=== PATIENT | female | born 1945 | race Caucasian/White ===

== ENCOUNTER 2017-01-20 17:52 | Emergency (ER) | payer MEDICARE, BC ==
[~2017-01-20] VITALS: Ht 160 cm; Wt 95.0 kg
[2017-01-20] MEDS ORDERED: KEFLEX500 MG PO (18:56)
[2017-01-20] MEDS ORDERED: PYRIDIUM200 MG PO (18:56)
[2017-01-20] MEDS ORDERED: LORTAB 5/3255 MG PO (18:56)
[2017-01-20 19:10] VITALS: BP 131/73
== END 2017-01-20 19:15 | disposition home or self-care (01) ==
LOC: ED 17:52
PROC: 0HDRXZZ Extraction of Toe Nail, External Approach (ICD-10-PCS; principal; 2017-01-20)
DX: S91.202A Unspecified open wound of left great toe with damage to nail, initial encounter (principal); N39.0 Urinary tract infection, site not specified; R30.0 Dysuria

== ENCOUNTER 2017-07-08 20:34 | Inpatient (IN) | payer MEDICARE, BC ==
[~2017-07-08] VITALS: Ht 160 cm; Wt 95.0 kg
[~2017-07-08 20:34] MED LIST: KEFLEX500 MG PO; LORTAB 5/3255 MG PO; PYRIDIUM200 MG PO
--- NOTE | 2017-07-08 20:38 | NUR ---
PT WHEELED STRAIGHT TO ROOM 12 AND TRIAGED.
--- NOTE | 2017-07-08 20:47 | NUR ---
DR TANNER AT BEDSIDE.
--- NOTE | 2017-07-08 21:00 | NUR ---
PT RELATED HER BREATHING FELT BETTER AFTER RESP TX.
--- NOTE | 2017-07-08 21:30 | NUR ---
BREATHING TREATMENT GIVEN. BREATHING TECH. FOR GOOD DEPOSITION TO THE LUNGS.
[2017-07-08 22:00] LABS: HEMATOCRIT 25.8 % (37.0-47.0); HEMOGLOBIN 8.7 g/dl (12.0-16.0); IMMATURE GRANULOCYTES 0.6 % (0.0-1.0); MEAN CELL VOLUME 106.6 fL CALC (80.0-100.0); MEAN CORPUSCULAR HGB CONC 33.7 g/L CALC (32.0-36.0); NEUT# 8.29 thou/uL (2.00-7.15); RED BLOOD COUNT 2.42 mill/uL (4.20-5.60); RED CELL DISTRI WIDTH 21.2 % (11.5-15.5)
[2017-07-08 22:14] LABS: ALBUMIN 4.3 g/dL (3.2-5.0); ALKALINE PHOSPHATASE 73 u/l (38-126); ANION GAP 22 (6-22 (CALC)); BILIRUBIN, TOTAL 0.6 mg/dL (0.0-1.4); BUN 18 mg/dL (8-23); BUN/CREATININE RATIO 19 (12-20 (CALC)); CARBON DIOXIDE 22 mmol/l (22-30); CHLORIDE 100 mmol/l (95-108); CREATININE 0.9 mg/dL (0.5-1.0); GFR > 60 ML/MIN (>=60 (CALC)); GFR FOR AFR.AMER. > 60 ML/MIN (>=60 (CALC)); POTASSIUM 4.3 mmol/l (3.5-5.1); SGOT/AST 71 u/l (9-36); SGPT/ALT 78 u/l (11-66); SODIUM 139 mmol/l (137-146); TOTAL PROTEIN 7.8 g/dL (6.3-8.2)
[2017-07-08 22:26] LABS: MYOGLOBIN 49 ng/mL (0 - 62)
--- NOTE | 2017-07-08 22:54 | NUR ---
PT TO CT.
--- NOTE | 2017-07-08 23:21 | NUR ---
RETURNED FROM CT.
--- NOTE | 2017-07-08 23:29 | NUR ---
PT DENIED SOB AT THIS TIME.
[2017-07-09 00:02] LABS: URINE BILIRUBIN - DIPSTICK NEGATIVE (NEGATIVE); URINE BLOOD DIPSTICK NEGATIVE (NEGATIVE); URINE COLOR YELLOW; URINE GLUCOSE - DIPSTICK NEGATIVE (NEGATIVE); URINE KETONE NEGATIVE (NEGATIVE); URINE LEUK ESTERASE TRACE (NEGATIVE); URINE NITRITE - DIPSTICK NEGATIVE (Negative); URINE PH 6.5 (4.5-8.0); URINE PROTEIN - DIPSTICK NEGATIVE (NEG-TRACE); URINE SPECIFIC GRAVITY <=1.005; URINE UROBILINOGEN - DIPSTICK 0.2 E.U./dL (0.2)
[2017-07-09 00:10] LABS: URINE CLARITY CLEAR
--- NOTE | 2017-07-09 00:15 | NUR ---
MED/SURG CALLED FOR REPORT. WILL RETURN CALL.
--- NOTE | 2017-07-09 00:25 | NUR ---
REPORT GIVEN TO ELAINEYA MED/SURG.
--- NOTE | 2017-07-09 00:35 | NUR ---
PT.ARRIVED TO THE FLOOR ACCOMPANIED BY CARLOS HELMS OF THE ED VIA STRETCHER. PT.APPEARS TO BE IN STABLE CONDITION AT THIS TIME. PT. DENIES ANY PAIN/N/V AT THIS TIME. PT.IS SOB UPON AMBULATION, BUT REPORTS FEELING "MUCH BETTER," SINCE GETTING TO THE HOSPITAL. V/S BEING ASSESSED. LUNG SOUNDS ARE WHEEZY THROUGHOUT, ABD.SOFT/NON-TENDER/HYPO-BOWEL SOUNDS, PT.REPORTS USING STOOL SOFTENERS REGULARLY, BUT REPORTS BM YESTEREDAY/NORMAL. DENIES DIFFICULTY URINATING, LOCX4. PT.REPORTS FEELING "CHILLED" AT THIS TIME. NO APPARENT EDEMA OR SKIN ISSUES. IV FLUIDS RUNNING NS BOLUS UPON ARRIVING TO THE FLOOR. PT ORIENTED TO ROOM,CALL SYSTEM,LIGHTS,BED AND TV AND PROVIDED W/PO WATER AT THIS TIME.
--- NOTE | 2017-07-09 00:35 | NUR ---
PT TO RM 282 ON TELE WITH RN. PT COND STABLE AT THIS TIME.
[2017-07-09 00:40] VITALS: BP 153/66
--- NOTE | 2017-07-09 01:22 | NUR ---
PT.MEDICATED FOR SLEEP ORDERS PROVIDE AND IV FLUID THERAPY ADMINSTERED RATE CHANGE TO 125MLS/HR. PT.INSTRUCTED TO CALL FOR ASSISTANCE AMBULATING DUE TO REPORTS OF WEAKNESS, PT.EXPRESSESS UNDERSTANDING. CALL LIGHT IS AT BEDSIDE, LIGHTS TURNED OUT, PT.REQUESTED DOOR TO BE CLOSE.
[2017-07-09 04:35] VITALS: BP 136/77
--- NOTE | 2017-07-09 05:10 | NUR ---
PT.ASSISTED TO BSC AND OUTPUT 500CC CLEAR YELLOW URINE. PT.ASSISTED BACK TO BED, ROOM COOLED AND BLANKET REMOVED/SHEET LEFT ON FOR COMFORT. PT.DENIES ANY OTHER NEEDS AT THIS TIME. CALL LIGHT AT SIDE.
--- NOTE | 2017-07-09 07:10 | NUR ---
REPORT RECEIVED FROM CARLOS DENG;PT APPEARS TO BE SLEEPING IN SEMI FOWLERS POSITION,WAKES EASILY TO VERBAL STIMULI;INTRODUCED SELF TO PT AND POC DISCUSSED;RESPIRATIONS EVEN AND UNLABORED;TELE MONITOR IN PLACE;ENCOURAGED TO CALL FOR ASSISTANCE IF NEEDED;BED IN THE LOWEST POSITION WITH CALL LIGHT IN REACH;WILL CONTINUE TO MONITOR
[2017-07-09 08:20] VITALS: BP 129/72
--- NOTE | 2017-07-09 08:30 | NUR ---
PT RESTING IN SUPINE POSITION,TEARFUL;PT REPORTS CONFUSION TO POC;PT RE-ASSURED AND POC DISCUSSED,PT VERBALIZES UNDERSTANDING;VS OBTAINED AND ASSESSMENT COMPLETED;CURRENT TEMP 99.3,PRN TYLENOL TO BE ADMINISTERED;PT ENCOURAGED TO REMOVE BLANKETS AND AC LOWERED;RESPIRATIONS EVEN AND UNLABORED,SHALLOW ON 02 @ 2L VIA NC;WHEEZES NOTED;ABDOMEN DISTENDED/SOFT ON PALPATION AND ACTIVE IN ALL 4 QUADRANTS;TELE MONITOR IN PLACE;#20G TO RAC INFUSING NS @ 125ML/HR,SITE APPEARS HEALTHY;SKIN INTACT;PT DENIES ANY OTHER CURRENT NEEDS;ENCOURAGED TO CALL FOR ASSISTANCE IF NEEDED;CALL LIGHT IN REACH;WILL CONTINUE TO MONITOR
--- NOTE | 2017-07-09 09:55 | NUR ---
TEMP RE-CHECK 98.7
--- NOTE | 2017-07-09 10:05 | NUR ---
LUBNA,RESPIRATORY ADMINISTERING BREATHING TREATMENT AT THIS TIME
--- NOTE | 2017-07-09 11:30 | NUR ---
PT RESTING AT BEDSIDE EATING LUNCH;RESPIRATIONS REMAIN EVEN AND UNLABORED ON RA;TELE MONITOR IN PLACE;IV SITE PATENT;PT DENIES ANY PAIN OR DISCOMFORTS;ENCOURAGED TO CALL FOR ASSISTANCE IF NEEDED;CALL LIGHT IN REACH;WILL CONTINUE TO MONITOR
[2017-07-09 14:19] VITALS: BP 127/63
--- NOTE | 2017-07-09 16:40 | NUR ---
PT OOB RESTING IN RECLINER;RESPIRATIONS EVEN AND UNLABORED ON RA,OXYGEN AT BEDSIDE NEEDED;TELE MONITOR IN PLACE;PT VOICES NO COMPLAINTS OR NEEDS;IV SITE PATENT INFUSING TO RAC WITH EASE;CALL LIGHT IN REACH;WILL CONTINUE TO MONITOR
[2017-07-09 19:10] VITALS: BP 127/66
--- NOTE | 2017-07-09 19:39 | NUR ---
REPORT RECEIVED FOR DAY NURSE. PT.IS LOW FOWLERS POSITION WATCHING TV W/LIGHTS LOW. PT.DENIES ANY PAIN OR SOB AT THIS TIME. REPORTS FEELING, "MUCH BETTER." IV FLUIDS ARE RUNNING NS@100, IV SITE APPEARS HEALTHY AT THIS TIME. NO S/S OF DISTRESS. PT.HAS BEEN ENCOURAGED TO CALL IF ANY NEEDS ARISE. CALL LIGHT IS IN HAND.
--- NOTE | 2017-07-09 21:15 | NUR ---
PT.MEDICATED ORDERS PROVIDE. PT.REPORTS HAVING NOT RECEIVED ANY OF HER HOME MEDICATIONS AND EXPRESSED CONCERN AND FRUSTRATION STATING SHE SPOKE WITH DAY NURSE AND THE DOCTOR REGARDING HER HOME MEDICATIONS. WILL FOLLOW-UP WITH PHYSICIAN TO ORDER HOME MEDICATIONS. PT.ASSISTED TO RESTROOM AND ASSISTED BACK TO BED. PT.ENCOURAGED TO CALL IF ANY ASSISTANCE IS NEEDED, CALL LIGHT AT BEDSIDE.
[2017-07-09] MEDS ORDERED: EFFEXOR37.5 MG PO (22:06)
[2017-07-09] MEDS ORDERED: MEMANTINE HCL10 MG (23:04)
--- NOTE | 2017-07-10 00:05 | NUR ---
PT.MEDICATED W/IV ANTIBIOTIC THERAPY, HOME MEDICATIONS ORDERED AND FOR BLOOD SUGAR OF 289. PT.WAS ASLEEP I ENTERED THE ROOM, BUT AWOKE TO MY VOICE. PT.DENIES ANY PAIN OR SOB AT THIS TIME. V/S ARE BEING ASSESSED AT THIS TIME, PT.IS AFEBRILE. NO S/S OF DISTRESS NOTED. CALL LIGHT IS W/IN REACH AND PT.HAS BEEN ENCOURAGED TO CALL FOR ASSISTANCE WHEN NEEDED AND FOR AMBULATION.
[2017-07-10 00:21] VITALS: BP 108/54
[2017-07-10 04:15] VITALS: BP 139/71
--- NOTE | 2017-07-10 04:15 | NUR ---
PT.IS SLEEPING AT THIS TIME. NO S/S OF DISTRESS CALL LIGHT IS AT SIDE.
[2017-07-10 05:28] LABS: HEMATOCRIT 22.9 % (37.0-47.0); HEMOGLOBIN 7.3 g/dl (12.0-16.0); IMMATURE GRANULOCYTES 0.3 % (0.0-1.0); MEAN CELL VOLUME 111.2 fL CALC (80.0-100.0); MEAN CORPUSCULAR HGB 35.4 pG CALC (26.0-32.0); MEAN CORPUSCULAR HGB CONC 31.9 g/L CALC (32.0-36.0); NEUT# 4.72 thou/uL (2.00-7.15); RED BLOOD COUNT 2.06 mill/uL (4.20-5.60); RED CELL DISTRI WIDTH 21.4 % (11.5-15.5)
[2017-07-10 05:40] LABS: ALKALINE PHOSPHATASE 50 u/l (38-126); ANION GAP 15 (6-22 (CALC)); BILIRUBIN, TOTAL 0.4 mg/dL (0.0-1.4); BUN 12 mg/dL (8-23); BUN/CREATININE RATIO 13 (12-20 (CALC)); CARBON DIOXIDE 22 mmol/l (22-30); CHLORIDE 108 mmol/l (95-108); CREATININE 0.9 mg/dL (0.5-1.0); GFR > 60 ML/MIN (>=60 (CALC)); GFR FOR AFR.AMER. > 60 ML/MIN (>=60 (CALC)); MAGNESIUM 1.8 mg/dL (1.6-2.3); SGOT/AST 28 u/l (9-36); SGPT/ALT 52 u/l (11-66); SODIUM 142 mmol/l (137-146)
[2017-07-10 05:41] LABS: POTASSIUM 3.4 mmol/l (3.5-5.1); TOTAL PROTEIN 6.1 g/dL (6.3-8.2)
--- NOTE | 2017-07-10 05:55 | NUR ---
RESPIRATORY IN WITH PT, JUST COMPLETING BREATHING TREATEMENT. PT.MEDICATED W/IV ANTIBIOTIC THERAPY AT THIS TIME. PT.DENIES ANY NEEDS AT THIS TIME,CALL LIGHT W/IN REACH.
--- NOTE | 2017-07-10 07:00 | NUR ---
RECEIVED BEDSIDE REPORT FROM SOWMYA GONZALEZ. RESTING IN SEMI FOWLERS WITH EYES CLOSED, AWAKENS EASILY. RESPS EVEN AND UNLABORED ON ROOM AIR, TELE MONITOR IN PLACE. #22 RAC INFUSING WITHOUT DIFFICULTY, SITE APPEARS HEALTHY. DENIES PAIN OR DISCOMFORT. SAFETY PRECAUTIONS REINFORCED. BED IN LOWEST POSITION WITH WHEELS LOCKED. CALL LIGHT WITHIN REACH. ENCOURAGED PT TO CALL FOR ANY NEEDS.
[2017-07-10 08:30] VITALS: BP 127/50
[2017-07-10 11:22] VITALS: BP 138/71
--- NOTE | 2017-07-10 12:45 | NUR ---
SITTING IN BEDSIDE CHAIR, FAMILY AT BEDSIDE. RESPS EVEN AND UNLABORED ON ROOM AIR, TELE MONITOR IN PLACE. #22 RAC INFUSING WITHOUT DIFFICULTY, SITE APPEARS HEALTHY. DENIES PAIN OR DISCOMFORT. DR MOORE AT BEDSIDE, NEW ORDERS RECEIVED. CALL LIGHT WITHIN REACH. WILL CONTINUE TO MONITOR.
[2017-07-10] MEDS ORDERED: NEXIUM40 M1 PO (14:40)
[2017-07-10] MEDS ORDERED: NAMENDA10 MG PO (14:41)
[2017-07-10] MEDS ORDERED: GLIPIZIDE5 MG PO (14:41)
[2017-07-10] MEDS ORDERED: LOSARTAN/HCT1 TA2 PO (14:41)
[2017-07-10] MEDS ORDERED: VALACYCLOVIR H500 MG PO (14:42)
[2017-07-10] MEDS ORDERED: FUROSEMIDE40 MG PO (14:42)
[2017-07-10] MEDS ORDERED: TRESIBA FL100 UNIT/M SC (14:43)
[2017-07-10] MEDS ORDERED: PEPCID40 MG PO (14:44)
[2017-07-10] MEDS ORDERED: AUGMENTIN875TAB PO (15:17)
[2017-07-10] MEDS ORDERED: PREDNISONE10 MG PO (15:17)
--- NOTE | 2017-07-10 15:31 | NUR ---
IV site discontinued, cath intact. No edema , no redness, voices no discomfort.
[2017-07-10 15:39] VITALS: BP 153/71
--- NOTE | 2017-07-10 15:40 | NUR ---
Discharge instructions given. Patient verbalizes understanding of same. Discharged in stable condition via Wheelchair to Home with spouse. All belongings sent with pt.
== END 2017-07-10 15:40 | disposition home or self-care (01) | DRG 194 ==
LOC: ED 20:34 → ED-I 22:26 → ED 23:54 → MS2 23:55
PROVIDERS: Emergency Medicine; Nurse Practitioner Family; ADMIT Internal Medicine; ATTEND Internal Medicine
DX: J18.9 Pneumonia, unspecified organism (principal); C34.92 Malignant neoplasm of unspecified part of left bronchus or lung; D64.81 Anemia due to antineoplastic chemotherapy; C78.39 Secondary malignant neoplasm of other respiratory organs; D53.9 Nutritional anemia, unspecified; E86.0 Dehydration; E11.9 Type 2 diabetes mellitus without complications; I10 Essential (primary) hypertension; T45.1X5A Adverse effect of antineoplastic and immunosuppressive drugs, initial encounter; Y95 Nosocomial condition; Z90.2 Acquired absence of lung [part of]; Z92.3 Personal history of irradiation; Z92.21 Personal history of antineoplastic chemotherapy; Z79.84 Long term (current) use of oral hypoglycemic drugs
CPT/HCPCS: Q9967

== ENCOUNTER 2019-01-02 00:13 | Emergency (ER) | payer MEDICARE, BC ==
[~2019-01-02] VITALS: Ht 160 cm; Wt 95.0 kg
[~2019-01-02 00:13] MED LIST changes: +AUGMENTIN875TAB PO; +EFFEXOR37.5 MG PO; +FUROSEMIDE40 MG PO; +GLIPIZIDE5 MG PO; +LOSARTAN/HCT1 TA2 PO; +MEMANTINE HCL10 MG; +NAMENDA10 MG PO; +NEXIUM40 M1 PO; +PEPCID40 MG PO; +PREDNISONE10 MG PO; +TRESIBA FL100 UNIT/M SC; +VALACYCLOVIR H500 MG PO
[2019-01-02 00:30] VITALS: BP 177/86
[2019-01-02 01:09] LABS: HEMATOCRIT 40.9 % (37.0-47.0); HEMOGLOBIN 13.5 g/dl (12.0-16.0); IMMATURE GRANULOCYTES 0.3 % (0.0-5.0); MEAN CELL VOLUME 101.2 fL CALC (80.0-100.0); MEAN CORPUSCULAR HGB 33.4 pG CALC (26.0-32.0); NEUT# 8.57 thou/uL (2.00-7.15); RED BLOOD COUNT 4.04 mill/uL (4.20-5.60)
[2019-01-02 01:18] LABS: ALBUMIN 4.4 g/dL (3.2-5.0); BILIRUBIN, TOTAL 0.4 mg/dL (0.0-1.4); CREATININE 1.3 mg/dL (0.5-1.0); TOTAL PROTEIN 7.5 g/dL (6.3-8.2)
[2019-01-02 01:19] LABS: INTERNATIONAL NORMALIZED RATIO 1.1 RATIO (0.7-1.3); PROTHROMBIN TIME 11.4 SECONDS (9.0-12.5)
[2019-01-02] MEDS ORDERED: MEMANTINE HCL10 MG PO (01:20)
[2019-01-02] MEDS ORDERED: ATORVASTATIN CA10 MG PO (01:21)
[2019-01-02] MEDS ORDERED: ATIVAN1 MG PO (01:22)
[2019-01-02] MEDS ORDERED: LORTAB 7.57.5 MG PO (01:22)
[2019-01-02] MEDS ORDERED: NEXIUM40 M1 PO (01:23)
[2019-01-02] MEDS ORDERED: LEVOTHYROXIN50 MCG PO (01:23)
[2019-01-02] MEDS ORDERED: RANITIDINE150 MG PO (01:24)
[2019-01-02] MEDS ORDERED: ESTRACE VAG0.1 MG/GM VA (01:24)
[2019-01-02] MEDS ORDERED: LORATADINE10 M1 PO (01:25)
[2019-01-02] MEDS ORDERED: SINGULAIR10 MG PO (01:25)
[2019-01-02] MEDS ORDERED: ASPIRIN 8181 MG PO (01:26)
[2019-01-02] MEDS ORDERED: MULTIVITAMIN AD1 TAB PO (01:26)
== END 2019-01-02 01:30 | disposition left against medical advice (07) ==
LOC: ED 00:13
DX: K56.41 Fecal impaction (principal); K62.5 Hemorrhage of anus and rectum; E11.9 Type 2 diabetes mellitus without complications; Z79.4 Long term (current) use of insulin; Z91.19 Patient's noncompliance with other medical treatment and regimen

== ENCOUNTER 2019-05-21 | Emergency (ER) | payer MEDICARE, BC ==
[~2019-05-21] MED LIST changes: +ASPIRIN 8181 MG PO; +ATIVAN1 MG PO; +ATORVASTATIN CA10 MG PO; +ESTRACE VAG0.1 MG/GM VA; +LEVOTHYROXIN50 MCG PO; +LORATADINE10 M1 PO; +LORTAB 7.57.5 MG PO; +MEMANTINE HCL10 MG PO; +MULTIVITAMIN AD1 TAB PO; +RANITIDINE150 MG PO; +SINGULAIR10 MG PO
[2019-05-21] MEDS ORDERED: MECLIZINE25 MG PO ×2 (18:27)
== END 2019-05-21 18:32 | disposition home or self-care (01) ==
DX: S00.03XA Contusion of scalp, initial encounter (principal); M25.511 Pain in right shoulder; E11.9 Type 2 diabetes mellitus without complications; W19.XXXA Unspecified fall, initial encounter; Z79.4 Long term (current) use of insulin

== ENCOUNTER 2019-11-25 14:37 | Inpatient (IN) | payer MEDICARE, BC ==
[~2019-11-25] VITALS: Ht 160 cm; Wt 88.9 kg
[2019-11-25] VITALS (9 sets, daily range): BP systolic 137–163; BP diastolic 73–87
[~2019-11-25 14:37] MED LIST changes: +MECLIZINE25 MG PO
[2019-11-25] MEDS ORDERED: LEVOFLOXACIN750 MG PO (14:59)
[2019-11-25] MEDS ORDERED: AMOX/K CLAV875 M1 PO (15:00)
[2019-11-25] MEDS ORDERED: MEDDOSEPAK PO (15:00)
[2019-11-25] MEDS ORDERED: MEMANTINE HYDRO10 MG PO (15:02)
[2019-11-25] MEDS ORDERED: OMEPRAZOLE DR40 MG PO (15:03)
[2019-11-25] MEDS ORDERED: TOPIRAMATE25 MG PO (15:03)
[2019-11-25] MEDS ORDERED: LEVOTHYROXIN75 MCG PO (15:04)
[2019-11-25] MEDS ORDERED: VENLAFAXINE HCL75 M1 PO (15:05)
[2019-11-25 15:31] LABS: HEMOGLOBIN 12.3 g/dl (12.0-16.0); IMMATURE GRANULOCYTES 3.8 % (0.0-5.0); MEAN CELL VOLUME 101.3 fL CALC (80.0-100.0); MEAN CORPUSCULAR HGB 31.9 pG CALC (26.0-32.0); MEAN CORPUSCULAR HGB CONC 31.5 g/dL CAL (32.0-36.0); NEUT# 9.55 thou/uL (2.00-7.15); RED BLOOD COUNT 3.85 mill/uL (4.20-5.60)
[2019-11-25 15:48] LABS: ALKALINE PHOSPHATASE 87 u/l (38-126); BILIRUBIN, TOTAL 0.5 mg/dL (0.0-1.4); BUN 34 mg/dL (8-23); BUN/CREATININE RATIO 35 (12-20 (CALC)); CARBON DIOXIDE 20 mmol/l (22-30); CHLORIDE 99 mmol/l (95-108); GFR 54 ML/MIN (>=60 (CALC)); GFR FOR AFR.AMER. > 60 ML/MIN (>=60 (CALC)); SGOT/AST 66 u/l (9-36); SODIUM 132 mmol/l (137-146); TOTAL PROTEIN 7.5 g/dL (6.3-8.2)
[2019-11-25 15:49] LABS: CHOLESTEROL HDL RATIO 6.1 (<4.4 (CALC))
[2019-11-25 16:03] LABS: MAGNESIUM 2.4 mg/dL (1.6-2.3)
[2019-11-25 16:04] LABS: ANION GAP 18 (6-22 (CALC)); POTASSIUM 4.6 mmol/l (3.5-5.1)
[2019-11-25 16:30] LABS: URINE BILIRUBIN - DIPSTICK NEGATIVE (NEGATIVE); URINE BLOOD DIPSTICK NEGATIVE (NEGATIVE); URINE CLARITY CLEAR; URINE COLOR YELLOW; URINE GLUCOSE - DIPSTICK >=1000 mg/dL (NEGATIVE); URINE KETONE NEGATIVE (NEGATIVE); URINE LEUK ESTERASE NEGATIVE (Negative); URINE NITRITE - DIPSTICK NEGATIVE (Negative); URINE PH 5.5 (4.5-8.0); URINE PROTEIN - DIPSTICK NEGATIVE (NEG-TRACE); URINE UROBILINOGEN - DIPSTICK 0.2 E.U./dL (0.2)
[2019-11-26] VITALS (7 sets, daily range): BP systolic 122–156; BP diastolic 58–86
[2019-11-26 07:58] LABS: HEMATOCRIT 36.3 % (37.0-47.0); HEMOGLOBIN 11.4 g/dl (12.0-16.0); IMMATURE GRANULOCYTES 5.4 % (0.0-5.0); MEAN CELL VOLUME 101.7 fL CALC (80.0-100.0); MEAN CORPUSCULAR HGB 31.9 pG CALC (26.0-32.0); MEAN CORPUSCULAR HGB CONC 31.4 g/dL CAL (32.0-36.0); NEUT# 7.66 thou/uL (2.00-7.15); RED BLOOD COUNT 3.57 mill/uL (4.20-5.60)
[2019-11-26 08:32] LABS: ALBUMIN 3.2 g/dL (3.2-5.0); ALKALINE PHOSPHATASE 65 u/l (38-126); ANION GAP 12 (6-22 (CALC)); BILIRUBIN, TOTAL 0.3 mg/dL (0.0-1.4); BUN 29 mg/dL (8-23); BUN/CREATININE RATIO 31 (12-20 (CALC)); CARBON DIOXIDE 22 mmol/l (22-30); CHLORIDE 106 mmol/l (95-108); CREATININE 0.9 mg/dL (0.5-1.0); GFR > 60 ML/MIN (>=60 (CALC)); GFR FOR AFR.AMER. > 60 ML/MIN (>=60 (CALC)); POTASSIUM 4.1 mmol/l (3.5-5.1); SGOT/AST 59 u/l (9-36); SODIUM 136 mmol/l (137-146)
[2019-11-26 08:37] LABS: TOTAL PROTEIN 5.9 g/dL (6.3-8.2)
[2019-11-26] MEDS ORDERED: OZEMPIC2 MG/1.5 M (09:05)
[2019-11-26] MEDS ORDERED: L-LYSINE500 M3 (09:17)
[2019-11-26] MEDS ORDERED: VITAMI16 PO (09:21)
[2019-11-26] MEDS ORDERED: VITAMIN D PO (09:21)
[2019-11-27 00:21] VITALS: BP 137/70
[2019-11-27 04:52] LABS: HEMATOCRIT 35.3 % (37.0-47.0); HEMOGLOBIN 11.1 g/dl (12.0-16.0); MEAN CELL VOLUME 101.7 fL CALC (80.0-100.0); MEAN CORPUSCULAR HGB CONC 31.4 g/dL CAL (32.0-36.0); NEUT# 5.14 thou/uL (2.00-7.15); RED BLOOD COUNT 3.47 mill/uL (4.20-5.60); RED CELL DISTRI WIDTH 14.1 % (11.5-15.5)
[2019-11-27 05:00] VITALS: BP 127/74
[2019-11-27 05:09] LABS: ALBUMIN 2.9 g/dL (3.2-5.0); ALKALINE PHOSPHATASE 66 u/l (38-126); ANION GAP 10 (6-22 (CALC)); BILIRUBIN, TOTAL 0.3 mg/dL (0.0-1.4); BUN 23 mg/dL (8-23); BUN/CREATININE RATIO 27 (12-20 (CALC)); CARBON DIOXIDE 22 mmol/l (22-30); CHLORIDE 108 mmol/l (95-108); CREATININE 0.8 mg/dL (0.5-1.0); GFR > 60 ML/MIN (>=60 (CALC)); GFR FOR AFR.AMER. > 60 ML/MIN (>=60 (CALC)); MAGNESIUM 2.3 mg/dL (1.6-2.3); POTASSIUM 4.2 mmol/l (3.5-5.1); SGOT/AST 56 u/l (9-36); SODIUM 135 mmol/l (137-146); TOTAL PROTEIN 5.5 g/dL (6.3-8.2)
[2019-11-27 05:23] LABS: IMMATURE GRANULOCYTES 6.8 % (0.0-5.0)
[2019-11-27 08:48] VITALS: BP 137/81
[2019-11-27] MEDS ORDERED: CARDIZEM CD120 MG PO (10:25)
[2019-11-27] MEDS ORDERED: ZYVOX600 MG PO (10:25)
[2019-11-27] MEDS ORDERED: FLONASE AL50 MCG/AC1 (10:25)
[2019-11-27 11:14] VITALS: BP 156/84
== END 2019-11-27 13:16 | disposition home or self-care (01) | DRG 309 ==
LOC: ICU 14:37 → MS2 11-26 13:44
PROVIDERS: Nurse Practitioner; ADMIT Internal Medicine; ATTEND Internal Medicine
DX: I47.9 Paroxysmal tachycardia, unspecified (principal); N39.0 Urinary tract infection, site not specified; C79.31 Secondary malignant neoplasm of brain; C15.9 Malignant neoplasm of esophagus, unspecified; C34.90 Malignant neoplasm of unspecified part of unspecified bronchus or lung; Z16.11 Resistance to penicillins; R09.02 Hypoxemia; R06.02 Shortness of breath; E11.65 Type 2 diabetes mellitus with hyperglycemia; E03.9 Hypothyroidism, unspecified; F32.9 Major depressive disorder, single episode, unspecified; K21.9 Gastro-esophageal reflux disease without esophagitis; E78.5 Hyperlipidemia, unspecified; B95.2 Enterococcus as the cause of diseases classified elsewhere; Z98.84 Bariatric surgery status; Z90.2 Acquired absence of lung [part of]; Z20.828 Contact with and (suspected) exposure to other viral communicable diseases; R05 Cough; E11.69 Type 2 diabetes mellitus with other specified complication; I12.9 Hypertensive chronic kidney disease with stage 1 through stage 4 chronic kidney disease, or unspecified chronic kidney disease; N18.3 Chronic kidney disease, stage 3 (moderate); Z11.59 Encounter for screening for other viral diseases; R30.0 Dysuria; D50.9 Iron deficiency anemia, unspecified
CPT/HCPCS: J1650; J3370; Q9967

== ENCOUNTER 2020-01-27 13:33 | Observation (INO) | payer MEDICARE, BC ==
[~2020-01-27] VITALS: Ht 157.5 cm; Wt 82.3 kg
[~2020-01-27 13:33] MED LIST changes: +AMOX/K CLAV875 M1 PO; +CARDIZEM CD120 MG PO; +FLONASE AL50 MCG/AC1; +L-LYSINE500 M3; +LEVOFLOXACIN750 MG PO; +LEVOTHYROXIN75 MCG PO; +MEDDOSEPAK PO; +MEMANTINE HYDRO10 MG PO; +OMEPRAZOLE DR40 MG PO; +OZEMPIC2 MG/1.5 M; +TOPIRAMATE25 MG PO; +VENLAFAXINE HCL75 M1 PO; +VITAMI16 PO; +VITAMIN D PO; +ZYVOX600 MG PO
--- NOTE | 2020-01-27 13:45 | NUR ---
PATIENT TO ROOM VIA WHEELCHAIR AND PRACTIONER NOTIFIED OF PATIENT STATUS
--- NOTE | 2020-01-27 14:35 | NUR ---
PT AWARE OF BUSY ER AND EXTENDED WAIT TIMES, OFFERS NO NEW COMPLAINTS
[2020-01-27 15:26] LABS: IMMATURE GRANULOCYTES 0.8 % (0.0-5.0); MEAN CELL VOLUME 99.3 fL CALC (80.0-100.0); MEAN CORPUSCULAR HGB 33.3 pG CALC (26.0-32.0); MEAN CORPUSCULAR HGB CONC 33.6 g/dL CAL (32.0-36.0); NEUT# 19.42 thou/uL (2.00-7.15); RED BLOOD COUNT 4.53 mill/uL (4.20-5.60); RED CELL DISTRI WIDTH 14.2 % (11.5-15.5)
[2020-01-27 15:28] LABS: HEMOGLOBIN 15.1 g/dl (12.0-16.0)
--- NOTE | 2020-01-27 15:38 | NUR ---
IV ACCESS OBTAINED AND LABS DRAWN PT TOLERATED WELL, SPOUSE CURRENTLY AT BEDSIDE
[2020-01-27 16:15] LABS: ALBUMIN 3.8 g/dL (3.2-5.0); ALKALINE PHOSPHATASE 63 u/l (38-126); ANION GAP 13 (6-22 (CALC)); BILIRUBIN, TOTAL 1.4 mg/dL (0.0-1.4); BUN 51 mg/dL (8-23); BUN/CREATININE RATIO 57 (12-20 (CALC)); CARBON DIOXIDE 23 mmol/l (22-30); CHLORIDE 96 mmol/l (95-108); CREATININE 0.9 mg/dL (0.5-1.0); GFR > 60 ML/MIN (>=60 (CALC)); GFR FOR AFR.AMER. > 60 ML/MIN (>=60 (CALC)); LIPASE 178 u/l (23-300); POTASSIUM 4.5 mmol/l (3.5-5.1); SGOT/AST 47 u/l (9-36); SODIUM 129 mmol/l (137-146); TOTAL PROTEIN 6.7 g/dL (6.3-8.2)
--- NOTE | 2020-01-27 16:30 | NUR ---
PT RESTING NO NEW COMPLAINTS, CALL CHANEL SALGADO REACH AND SPOUSE AT BEDSIDE
--- NOTE | 2020-01-27 17:36 | NUR ---
ASSISTED UP TO BSC, CALL CHANEL SWEET
--- NOTE | 2020-01-27 18:05 | NUR ---
PT HAD LARGE FIMR BM AND URINE SPECIMENS MIXED IN COLLECTION CONTAINER SO DISCARDED, PT AWARE OF NEED FOR URINE SPECIMEN
--- NOTE | 2020-01-27 19:07 | NUR ---
PT ASKING WHEN SHE CAN GO UPSTAIRS, UPDATED REGARDING ASSIGNMENT AND BUSY ER, PT JUST NODS AND GOES BACK TO WATCHING TELEVISION, SPOUSE REMAINS AT BEDSIDE
--- NOTE | 2020-01-27 20:00 | NUR ---
REPORT GIVEN TO SOWMYA. PATIENT READIED FOR TRANSPORT TO FLOOR.
[2020-01-27 20:13] VITALS: BP 137/75
--- NOTE | 2020-01-27 20:13 | NUR ---
PT ARRIVED TO MED SURG UNIT VIA STRETCHER ACCOMPANIED BY ED NURSE. PT APPEARS TO BE IN STABLE CONDITION AT THIS TIME. BUTTON CUTTER IN WITH PT OBTAINING V/S AND ORIENTING PT TO ROOM, CALL SYSTEM, LIGHTS BED AND TV.
--- NOTE | 2020-01-27 22:08 | NUR ---
PT MEDICATED ORDERS PROVIDE. PHYSICIAN NOTIFIED OF ELEVATED BLOOD SUGAR AND STAT GLUCOSE ORDERED. NEW ORDERS RECEIVED.
[2020-01-27 23:30] VITALS: BP 122/65; BP 124/74
[2020-01-27 23:30] LABS: URINE BILIRUBIN - DIPSTICK NEGATIVE (NEGATIVE); URINE BLOOD DIPSTICK NEGATIVE (NEGATIVE); URINE COLOR YELLOW; URINE GLUCOSE - DIPSTICK >=1000 mg/dL (NEGATIVE); URINE KETONE NEGATIVE (NEGATIVE); URINE LEUK ESTERASE NEGATIVE (NEGATIVE); URINE NITRITE - DIPSTICK NEGATIVE (Negative); URINE PH 5.5 (4.5-8.0); URINE PROTEIN - DIPSTICK NEGATIVE (NEG-TRACE); URINE SPECIFIC GRAVITY 1.015; URINE UROBILINOGEN - DIPSTICK 0.2 E.U./dL (0.2)
--- NOTE | 2020-01-27 23:38 | NUR ---
PT MEDICATED W/INSULIN ORDERS PROVIDE AND W/SLEEP AIDE [id number] PROVIDE. ARCHITECTURAL MODEL MAKER IN W/PT OBTAINING V/S AT THIS TIME. NO S/O DISTRESS NOTED.
--- NOTE | 2020-01-28 02:30 | NUR ---
Pt appears to be sleeping soundly, no s/o distress noted. call light at side. Lights and tv are off.
[2020-01-28 04:00] VITALS: BP 106/63
[2020-01-28 05:32] LABS: IMMATURE GRANULOCYTES 0.7 % (0.0-5.0); MEAN CELL VOLUME 101.8 fL CALC (80.0-100.0); MEAN CORPUSCULAR HGB 33.7 pG CALC (26.0-32.0); MEAN CORPUSCULAR HGB CONC 33.1 g/dL CAL (32.0-36.0); NEUT# 9.52 thou/uL (2.00-7.15); RED BLOOD COUNT 3.8 mill/uL (4.20-5.60); RED CELL DISTRI WIDTH 13.3 % (11.5-15.5)
[2020-01-28 05:38] LABS: HEMATOCRIT 38.7 % (37.0-47.0); HEMOGLOBIN 12.8 g/dl (12.0-16.0)
[2020-01-28 06:00] LABS: ANION GAP 12 (6-22 (CALC)); BUN 43 mg/dL (8-23); BUN/CREATININE RATIO 55 (12-20 (CALC)); CARBON DIOXIDE 21 mmol/l (22-30); CHLORIDE 104 mmol/l (95-108); CREATININE 0.8 mg/dL (0.5-1.0); GFR > 60 ML/MIN (>=60 (CALC)); GFR FOR AFR.AMER. > 60 ML/MIN (>=60 (CALC)); POTASSIUM 4.1 mmol/l (3.5-5.1); SODIUM 132 mmol/l (137-146)
--- NOTE | 2020-01-28 06:02 | NUR ---
PT MEDICATED ORDERS PROVIDE, PT WAS SLEEPING, BUT AWOKE TO MY VOICE. NO S/O DISTRESS NOTED. CALL LIGHT AT SIDE.
--- NOTE | 2020-01-28 06:47 | NUR ---
CRITICAL LACTIC ACID CALLED FROM LAB 2.4 PHYSICIAN NOTIFIED OF CRITICAL RESULT.
--- NOTE | 2020-01-28 07:35 | NUR ---
PATIENT IN BED AT THIS TIME AWAKE AND ALERT AND ORIENTED X3, DENIES ANY PAIN CALL LIGHT WITHIN REACH. SIDERAILS UP X 2
[2020-01-28 07:40] VITALS: BP 135/70
--- NOTE | 2020-01-28 08:10 | NUR ---
AT BEDSIDE DISCUSSING POC.
[2020-01-28 10:30] VITALS: BP 125/70
--- NOTE | 2020-01-28 11:47 | NUR ---
PATIENT D/C AT THIS TIME. PATIENT VERBALIZES UNDERSTANDING OF DISCHARGE INSTRUCITIONS. IV REMOVED AT THIS TIME. PATIENT DENIES ANY OTHER NEEDS.
--- NOTE | 2020-01-28 12:37 | NUR ---
Discharge instructions given. Patient verbalizes understanding of same. Discharged in stable condition via Wheelchair to Home with *Other. All belongings sent with pt.
== END 2020-01-28 12:35 | disposition home or self-care (01) ==
LOC: ED 13:33 → ED-I 16:40 → ED 16:52 → MS2 16:53
PROVIDERS: Family Medicine; ADMIT Internal Medicine; ATTEND Internal Medicine
DX: C79.31 Secondary malignant neoplasm of brain (principal); E87.1 Hypo-osmolality and hyponatremia; E87.2 Acidosis; E86.0 Dehydration; D72.829 Elevated white blood cell count, unspecified; E11.9 Type 2 diabetes mellitus without complications; F32.9 Major depressive disorder, single episode, unspecified; E03.9 Hypothyroidism, unspecified; K21.9 Gastro-esophageal reflux disease without esophagitis; E78.5 Hyperlipidemia, unspecified; Z79.4 Long term (current) use of insulin; Z85.118 Personal history of other malignant neoplasm of bronchus and lung; Z85.01 Personal history of malignant neoplasm of esophagus; Z79.52 Long term (current) use of systemic steroids; Z90.2 Acquired absence of lung [part of]; Z92.3 Personal history of irradiation; Z20.828 Contact with and (suspected) exposure to other viral communicable diseases
CPT/HCPCS: J1650

== ENCOUNTER 2021-09-14 11:58 | Emergency (ER) | payer MEDICARE, BC ==
[~2021-09-14] VITALS: Ht 157.5 cm; Wt 82.0 kg
[2021-09-14] MEDS ORDERED: METHOCARBAMOL500 MG PO (16:43)
[2021-09-14] MEDS ORDERED: LORTAB 5/3255 MG PO (16:43)
[2021-09-14] MEDS ORDERED: NAPROXEN500 MG PO (16:43)
[2021-09-14 17:06] VITALS: BP 157/77
== END 2021-09-14 17:30 | disposition home or self-care (01) ==
LOC: ED 11:58
DX: S46.911A Strain of unspecified muscle, fascia and tendon at shoulder and upper arm level, right arm, initial encounter (principal); I10 Essential (primary) hypertension; E11.42 Type 2 diabetes mellitus with diabetic polyneuropathy; E78.5 Hyperlipidemia, unspecified; E03.9 Hypothyroidism, unspecified; F32.A Depression, unspecified; K21.9 Gastro-esophageal reflux disease without esophagitis; C79.31 Secondary malignant neoplasm of brain; W06.XXXA Fall from bed, initial encounter; Y92.003 Bedroom of unspecified non-institutional (private) residence as the place of occurrence of the external cause; Z85.118 Personal history of other malignant neoplasm of bronchus and lung; Z79.4 Long term (current) use of insulin; Z20.822 Contact with and (suspected) exposure to COVID-19

== ENCOUNTER 2022-01-10 11:42 | Emergency (ER) | payer MEDICARE, BC ==
[2022-01-10] VITALS (10 sets, daily range): BP systolic 118–142; BP diastolic 46–75
[~2022-01-10] VITALS: Ht 157.5 cm; Wt 78.0 kg
[~2022-01-10 11:42] MED LIST changes: +METHOCARBAMOL500 MG PO; +NAPROXEN500 MG PO
[2022-01-10 12:57] LABS: HEMATOCRIT 40.5 % (37.0-47.0); HEMOGLOBIN 12.5 g/dl (12.0-16.0); IMMATURE GRANULOCYTES 0.1 % (0.0-5.0); MEAN CELL VOLUME 101.3 fL CALC (80.0-100.0); MEAN CORPUSCULAR HGB 31.3 pG CALC (26.0-32.0); MEAN CORPUSCULAR HGB CONC 30.9 g/dL CAL (32.0-36.0); NEUT# 8.3 thou/uL (2.00-7.15)
[2022-01-10 13:07] LABS: ALBUMIN 4.1 g/dL (3.2-5.0); ALKALINE PHOSPHATASE 75 u/l (38-126); BUN 20 mg/dL (8-23); BUN/CREATININE RATIO 22 (12-20 (CALC)); CHLORIDE 102 mmol/l (95-108); CREATININE 0.9 mg/dL (0.5-1.0); GFR FOR AFR.AMER. > 60 ML/MIN (>=60 (CALC)); GFR OTHER RACES > 60 ML/MIN (>=60 (CALC)); LIPASE 178 u/l (23-300); POTASSIUM 4.4 mmol/l (3.5-5.1); SGOT/AST 45 u/l (9-36); SODIUM 139 mmol/l (137-146); TOTAL PROTEIN 8.2 g/dL (6.3-8.2)
[2022-01-10 13:08] LABS: ANION GAP 13 (6-22 (CALC)); BILIRUBIN, TOTAL 0.6 mg/dL (0.0-1.4); CARBON DIOXIDE 28 mmol/l (22-30)
[2022-01-10] MEDS ORDERED: ZEPZELCA4 MG (14:12)
== END 2022-01-10 15:49 | disposition home or self-care (01) ==
LOC: ED 11:42
PROVIDERS: Nurse Practitioner
DX: K92.1 Melena (principal); K59.00 Constipation, unspecified; C34.90 Malignant neoplasm of unspecified part of unspecified bronchus or lung; C78.7 Secondary malignant neoplasm of liver and intrahepatic bile duct; C79.51 Secondary malignant neoplasm of bone; I10 Essential (primary) hypertension; E11.9 Type 2 diabetes mellitus without complications; G89.3 Neoplasm related pain (acute) (chronic); Z79.891 Long term (current) use of opiate analgesic; Z79.899 Other long term (current) drug therapy; Z79.4 Long term (current) use of insulin
CPT/HCPCS: Q9967

== ENCOUNTER 2022-04-07 09:55 | Emergency (ER) | payer MEDICARE, BC ==
[~2022-04-07] VITALS: Ht 157.5 cm; Wt 80.0 kg
[~2022-04-07 09:55] MED LIST changes: +ZEPZELCA4 MG
[2022-04-07] MEDS ORDERED: OXYCONTIN PO (10:30)
[2022-04-07] MEDS ORDERED: DOCUSATE CAL240 MG PO (10:31)
[2022-04-07 10:45] LABS: BASO% 0.4 % (0-3); EOS% 2.3 % (0-8); HEMATOCRIT 37.7 % (37.0-47.0); HEMOGLOBIN 11.8 g/dl (12.0-16.0); IMMATURE GRANULOCYTES 0.4 % (0.0-5.0); LYMPH% 7.3 % (15-41); MEAN CELL VOLUME 97.2 fL CALC (80.0-100.0); MEAN CORPUSCULAR HGB 30.4 pG CALC (26.0-32.0); MEAN CORPUSCULAR HGB CONC 31.3 g/dL CAL (32.0-36.0); MONO% 2.5 % (2-13); NEUT# 7.9 thou/uL (2.00-7.15); NEUT% 87.1 % (42-76); RED BLOOD COUNT 3.88 mill/uL (4.20-5.60); RED CELL DISTRI WIDTH 16.1 % (11.5-15.5)
[2022-04-07 11:01] LABS: ALBUMIN 4.1 g/dL (3.2-5.0); ALKALINE PHOSPHATASE 76 u/l (38-126); ANION GAP 12 (6-22 (CALC)); BILIRUBIN, TOTAL 0.3 mg/dL (0.0-1.4); BUN 15 mg/dL (8-23); BUN/CREATININE RATIO 17 (12-20 (CALC)); CARBON DIOXIDE 26 mmol/l (22-30); CHLORIDE 106 mmol/l (95-108); CREATININE 0.9 mg/dL (0.5-1.0); GFR FOR AFR.AMER. > 60 ML/MIN (>=60 (CALC)); GFR OTHER RACES > 60 ML/MIN (>=60 (CALC)); POTASSIUM 3.9 mmol/l (3.5-5.1); SGOT/AST 47 u/l (9-36); SODIUM 140 mmol/l (137-146); TOTAL PROTEIN 8.1 g/dL (6.3-8.2)
[2022-04-07 11:18] LABS: URINE BILIRUBIN - DIPSTICK NEGATIVE (NEGATIVE); URINE BLOOD DIPSTICK TRACE-INTACT (NEGATIVE); URINE COLOR YELLOW; URINE GLUCOSE - DIPSTICK NEGATIVE (NEGATIVE); URINE KETONE NEGATIVE (NEGATIVE); URINE PROTEIN - DIPSTICK TRACE mg/dL (NEG-TRACE); URINE UROBILINOGEN - DIPSTICK 0.2 E.U./dL (0.2)
[2022-04-07 11:22] LABS: URINE LEUK ESTERASE LARGE (NEGATIVE); URINE NITRITE - DIPSTICK NEGATIVE (Negative)
[2022-04-07 11:23] LABS: URINE BACTERIA FEW hpf; URINE EPITHELIAL CELLS MODERATE EPI/hpf (0-FEW); URINE WBC 20-50 WBC/hpf (0-5)
[2022-04-07] MEDS ORDERED: CIPROFLOXACN500 MG PO (14:57)
[2022-04-07 15:08] VITALS: BP 163/78
== END 2022-04-07 15:50 | disposition home or self-care (01) ==
LOC: ED 09:55
PROVIDERS: Emergency Medicine
DX: E11.649 Type 2 diabetes mellitus with hypoglycemia without coma (principal); N39.0 Urinary tract infection, site not specified; I10 Essential (primary) hypertension; Z79.4 Long term (current) use of insulin; Z85.118 Personal history of other malignant neoplasm of bronchus and lung; Z85.841 Personal history of malignant neoplasm of brain; Z20.822 Contact with and (suspected) exposure to COVID-19